=== PATIENT | male | born 1995 | race Caucasian/White ===

== ENCOUNTER 2016-10-16 20:54 | Emergency (ER) | payer OTHER ==
[2016-10-16] MEDS ORDERED: DUONEB INH ONE (22:12)
== END 2016-10-16 23:21 | disposition home or self-care (01) ==
LOC: ER 20:54
DX: R07.89 Other chest pain (principal); J45.909 Unspecified asthma, uncomplicated
CPT/HCPCS: 36415; 71020; 80053; 84484; 85025; 85379; 93005; 94640